=== PATIENT | female | born 1940 | race African-American/Black ===

== ENCOUNTER 2016-07-24 07:07 | Day surgery (SDC) | payer BC ==
--- NOTE | ~2016-07-24 | EGD ---
EGD REPORT [facility] [address] [id number] NAME: JOSE TAY : [birth year] STATUS : [facility]#: [id number] AGE: 76 ADM/REG DATE : 07/24/16 MR#: [id number] REPORT SERV DATE: 07/24/16 DICTATED BY: MAXWELL QUINTERO DATE: 07/24/16 REPORT STATUS : Draft [facility] DATE: 07/24/16 [facility] Patient Name: Jose Tay Date of : 1940 Attending MD: MAXWELL QUINTERO MD Procedure Date No Time: 07/24/2016 Procedure: Colonoscopy Indications: Hematochezia, Personal history of malignant neoplasm of the breast, Last colonoscopy: March 2009 Referring MD: JUAN DENNIS MD Medicines: Propofol per Anesthesia Complications: No immediate complications. Estimated blood loss: None. Procedure: Pre-Anesthesia Assessment: - After reviewing the risks and benefits, the patient was deemed in satisfactory condition to undergo the procedure. - Prior to the procedure, a History and Physical was performed, and patient medications and allergies were reviewed. The patient's tolerance of previous anesthesia was also reviewed. The risks and benefits of the procedure and the sedation options and risks were discussed with the patient. All questions were answered, and informed consent was obtained. Prior Anticoagulants: The patient has taken no previous anticoagulant or antiplatelet agents. ASA Grade Assessment: III - A patient with severe systemic disease. After reviewing the risks and benefits, the patient was deemed in satisfactory condition to undergo the procedure. After I obtained informed consent, the scope was passed under direct vision. Throughout the procedure, the patient's blood pressure, pulse, and oxygen saturations were monitored continuously. The CF [id number] was introduced through the anus and advanced to the cecum, identified by appendiceal orifice and ileocecal valve. The colonoscopy was performed without difficulty. The ileocecal valve and appendiceal orifice were photographed. The patient tolerated the procedure well. The quality of the bowel preparation was good. The bowel preparation used was SUPREP. Scope withdrawal time was nearly 8 minutes. Findings: The perianal and digital rectal examinations were normal. Pertinent negatives include normal sphincter tone. Non-bleeding internal hemorrhoids were found during retroflexion and EGD REPORT [address] [id number] NAME: JOSE TAY : [birth year] STATUS : [facility]#: [id number] AGE: 76 ADM/REG DATE : 07/24/16 MR#: [id number] REPORT SERV DATE: 07/24/16 DICTATED BY: MAXWELL QUINTERO DATE: 07/24/16 REPORT STATUS : Draft [facility] DATE: 07/24/16 were large and Grade I (internal hemorrhoids that do not prolapse). The exam was otherwise without abnormality. Impression: - Non-bleeding internal hemorrhoids. - The examination was otherwise normal. Recommendation: - Discharge patient to home (ambulatory). - Return to previous diet. - Continue present medications. - Collect Hemoccults on three spontaneously passed stools annually. - No further routine screening colonoscopy. - Return to GI clinic PRN. - Patient has a contact number available for emergencies. The signs and symptoms of potential delayed complications were discussed with the patient. Return to normal activities tomorrow. Written discharge instructions were provided to the patient. Procedure Code(s): --- Professional --- 80665, Colonoscopy, flexible, proximal to splenic flexure; diagnostic, with or without collection of specimen(s) by brushing or washing, with or without colon decompression (separate procedure) Diagnosis Code(s): --- Professional --- K64.0, First degree hemorrhoids K92.1, Melena Z85.3, Personal history of malignant neoplasm of breast CPT copyright 2013 [employer]. All rights reserved. The codes documented in this report are preliminary and upon life support technician review may be revised to meet current compliance requirements. MAXWELL QUINTERO MD 07/24/2016 9:19 AM This report has been signed electronically. Number of Addenda: 0 Note Initiated On: 07/24/2016 8:51 AM Scope Withdrawal Time 0 hours 7 minutes 50 seconds [id number] [id number]
[~2016-07-24 07:07] MED LIST: ASAB PO; CALTRA600D PO; CALTRAT600 PO; D 5000 PO; FEMARA PO; HYDROCHLOROTHIAZIDE; MAXZIDE PO; NOLV10 PO; PROAIR HFA INH; SINGULAIR1 PO; TRIAMTERENE; VITAMIN E; VITE PO; ZOCOR20 PO; ZOCOR40 PO
== END 2016-07-24 23:59 | disposition home or self-care (01) ==
LOC: DMU 07:07
PROVIDERS: Internal Medicine Gastroenterology
PROC: 0DJD8ZZ Inspection of Lower Intestinal Tract, Via Natural or Artificial Opening Endoscopic (ICD-10-PCS; principal; 2016-07-24 08:30)
DX: K64.0 First degree hemorrhoids (principal); I10 Essential (primary) hypertension; E78.00 Pure hypercholesterolemia, unspecified; J44.9 Chronic obstructive pulmonary disease, unspecified; H40.9 Unspecified glaucoma; Z85.3 Personal history of malignant neoplasm of breast; Z86.010 Personal history of colon polyps; Z86.718 Personal history of other venous thrombosis and embolism; Z88.0 Allergy status to penicillin; Z86.711 Personal history of pulmonary embolism; Z79.82 Long term (current) use of aspirin; Z79.899 Other long term (current) drug therapy; Z97.2 Presence of dental prosthetic device (complete) (partial); Z90.710 Acquired absence of both cervix and uterus; Z90.13 Acquired absence of bilateral breasts and nipples; Z98.890 Other specified postprocedural states